=== PATIENT | male | born 1940 | race Caucasian/White ===

== ENCOUNTER 2021-09-15 10:12 | Inpatient (IN) ==
[2021-09-15 10:21] VITALS: BMI 31.1
--- NOTE | 2021-09-15 10:49 | DR.GENAD ---
HPI Time Seen Time Seen by Provider: 09/15/21 10:19 PCP Primary Care Physician: EDIL ONEIL Complaint/Symptoms Chief Complaint Doctors Comments: 80 y/o male presents to the ER with report of anemia, needing to receive blood transfusion. Has not been feeling well for awhile, + fatigue/weakness. No prior h/o anemia, no known reason to be anemic. BMs are dark ,but not black. Does take ASA on a daily basis. Pt's sister of [facility]. Pt with dyspnea on exertion, lightheadedness. BP has been running low. WAs on HTN meds, has stopped. Chief Complaint:: PRIMARY CARE DR SENT HIM TO RECEIVE BLOOD. PATIENT STATES HIS HCG WAS 6.8. Self Treatment fo Chief Complaint: N/A Nurses notes reviewed Nurses Notes Review: Yes Source History Provided: Patient Mode of Arrival Mode of Arrival: Ambulatory Timing Onset of Chief Complaint: 09/12/21 PMH PMH Past Medical History: Yes Past Medical History: Arthritis, COPD, Diabetes and Hypertension Past Surgical History: Yes Surgical History: Ortho Surgery Past Surgical History Comment: GALLBLADDER, LEFT KNEE Family History History of Family Medical Conditions: Yes Family Medical History: Diabetes Mellitus Social History Does patient currently use any type of tobacco product: No Have you used tobacco products in the last 12 months: No Type of Tobacco Use: None Does any household member use tobacco: No Do you use any recreational Drugs:: No Lives With: Other Lives Where: Home Infectious screening Have you traveled outside the country in the last 6 months?: No Isolation: Standard ROS Review of Systems Constitutional: Malaise and Weakness Eyes: No Symptoms Reported ENTM: No Symptoms Reported Respiratoy: Short of Breath (with exertion) Cardiovascular: No Symptoms Reported Gastrointestinal/Abdominal: No Symptoms Reported Genitourinary: No Symptoms Reported Neurological: No Symptoms Reported Musculoskeletal: No Symptoms Reported Integumentary: No Symptoms Reported Hematologic/Lymphatic: No Symptoms Reported Endocrine: No Symptoms Reported Psychiatric: No Symptoms Reported All Other Systems: Reviewed and Negative PE Vital Signs Vitals: Temperature 97.6 F Pulse Rate 88 Respiratory Rate 20 Blood Pressure 116/56 O2 Sat by Pulse Oximetry 90 General Limitations: No Limitations General Appearance: Alert and In No Apparent Distress Head Head Exam: Normal Inspection Eyes Eye exam: Normal Appearance and PERRL ENT ENT Exam: Normal Exam Neck Neck Exam: Normal Inspection and Full ROM Chest Chest Inspection: Normal Inspection Respiratory Respiratory Exam: Normal Lung Sounds Bilat; negative Accessory Muscle Use and Respiratory Distress Respiratory Exam: Bilateral: Clear to Auscultation Cardiovascular Cardiovascular Exam: Regular Rate, Normal Rhythm and Normal Heart Sounds Abdominal Exam Abdominal Exam: Normal Inspection, Normal Bowel Sounds and Soft; negative Tenderness Extremities Extremities Exam: Normal Inspection and Full ROM; negative Edema Back Back Exam: Normal Inspection Neurologic Neurological Exam: Alert, Oriented X3 and CN II-XII Intact; negative Motor Sensory Deficit Psychiatric Psychiatric Exam: Normal Affect Skin Skin Exam: Warm and Dry MDM Differential Diagnosis Differential Diagnosis: Anemia, GI bleeding, anemia of chronic disease COURSE Treatment Treatment: 80 y/o male sent for blood transfusion for anemia. Pt was 6.8 as outpatient recently, down to 6.4 here. Denies known focus of blood loss. Asked for stool sample to check for blood. Sister from [facility], not suspicious for same on pt's presentation. Ordered transfusion of 2 U PRBCs. Will recommend observation. Discussed with [facility] hospitalist, Dr Melara, accepts the admission. ROR Labs Reviewed Laboratory Results Reviewed?: Yes Result Diagrams: 09/15/21 11:07 09/15/21 11:07 Laboratory: WBC 9.3 X10^3/uL (3.6-10.0) 09/15/21 11:07 RBC 2.88 X10^6/uL (4.7-6.0) L 09/15/21 11:07 Hgb 6.4 g/dL (13.5-18.0) L* 09/15/21 11:07 Hct 20.4 % (42.0-54.0) L 09/15/21 11:07 MCV 70.6 fL (80.0-100.0) L 09/15/21 11:07 MCH 22.2 pg (27.0-34.0) L 09/15/21 11:07 MCHC 31.5 g/dL (33.0-35.0) L 09/15/21 11:07 RDW 17.0 % (11.6-16.5) H 09/15/21 11:07 Plt Count 503 X10^3/uL (150.0-450.0) H 09/15/21 11:07 Plt Count Comment Increased (ADEQUATE) 09/15/21 11:07 MPV 7.4 fL (7.4-11.0) 09/15/21 11:07 Neut % (Auto) 62.9 % (42.0-75.0) 09/15/21 11:07 Lymph % (Auto) 21.0 % (21.0-51.0) 09/15/21 11:07 [place]ent % (Auto) 13.6 % (0.0-13.0) H 09/15/21 11:07 Eos % (Auto) 1.4 % (0.9-2.9) 09/15/21 11:07 Baso % (Auto) 1.1 % (0.2-1.0) H 09/15/21 11:07 Neut # (Auto) 5.8 x10^3/uL (2.2-4.8) H 09/15/21 11:07 Lymph # (Auto) 2.0 X10^3/uL (1.3-2.9) 09/15/21 11:07 Sargent # (Auto) 1.3 x10^3/uL (0.3-0.8) H 09/15/21 11:07 Eos # (Auto) 0.1 x10^3/uL (0.0-0.2) 09/15/21 11:07 Baso # (Auto) 0.1 X10^3/uL (0.0-0.1) 09/15/21 11:07 Absolute Nucleated RBC 0.0 /100WBC 09/15/21 11:07 Plt Morphology Comment Normal (NORMAL) 09/15/21 11:07 RBC Morphology Abnormal (NORMAL) 09/15/21 11:07 Hypochromasia Slight A 09/15/21 11:07 Poikilocytosis Slight A 09/15/21 11:07 Anisocytosis Slight A 09/15/21 11:07 Microcytosis Slight A 09/15/21 11:07 PT 14.3 SECONDS (11.8-14.3) 09/15/21 11:07 INR Target Range - 09/15/21 11:07 INR 1.17 (0.8-1.3) 09/15/21 11:07 APTT 36.9 SECONDS (22.9-36.5) H 09/15/21 11:07 PTT Comment - 09/15/21 11:07 Sodium 133 mmol/L (136-145) L 09/15/21 11:07 Corrected Sodium 137 mmol/L (136-145) 09/15/21 11:07 Potassium 4.7 mmol/L (3.5-5.1) 09/15/21 11:07 Chloride 100 mmol/L (98-107) 09/15/21 11:07 Carbon Dioxide 23.0 mmol/L (21-32) 09/15/21 11:07 BUN 22 mg/dL (7-18) H 09/15/21 11:07 Creatinine 1.48 mg/dL (0.70-1.30) H 09/15/21 11:07 Est GFR (MDRD) Af Amer 59 (>60) 09/15/21 11:07 Est GFR (MDRD) Non-Af 49 (>60) L 09/15/21 11:07 Glucose 281 mg/dL (65-99) H 09/15/21 11:07 Calcium 7.5 mg/dL (8.5-10.1) L 09/15/21 11:07 Corrected Calcium 9.2 mg/dL (8.5-10.1) 09/15/21 11:07 Total Bilirubin 0.30 mg/dL (0.2-1.0) 09/15/21 11:07 AST 37 Units/L (15-37) 09/15/21 11:07 ALT 17 Units/L (12-78) 09/15/21 11:07 Alkaline Phosphatase 135 Units/L (46-116) H 09/15/21 11:07 Total Protein 6.9 g/dL (6.4-8.2) 09/15/21 11:07 Albumin 1.9 g/dL (3.4-5.0) L 09/15/21 11:07 Globulin 5.0 g/dL (2.5-4.5) H 09/15/21 11:07 Albumin/Globulin Ratio 0.4 Ratio (1.1-2.1) L 09/15/21 11:07 SARS-CoV-2 (PCR) Negative (NEGATIVE) 09/15/21 12:18 Influenza Type A (PCR) Negative (NEGATIVE) 09/15/21 12:18 Influenza Type B (PCR) Negative (NEGATIVE) 09/15/21 12:18 RSV (PCR) Negative (NEGATIVE) 09/15/21 12:18 Blood Type O POSITIVE 09/15/21 11:07 Antibody Screen Negative 09/15/21 11:07 Crossmatch See Detail 09/15/21 11:07 Other Results Comments: Hgb 6.4 Opioid Opioid Risk Tool Total: 0 Total Score Risk Category: Low Risk Copyright: Wade GALLO predicting aberrant behaviors Diagnosis Narrative Support Text: Symptomatic anemia
[2021-09-15 11:17] LABS: BASOPHILS # (AUTO) 0.1 X10^3/uL (0.0-0.1); HEMATOCRIT 20.4 % (42.0-54.0); MEAN CORPUSCULAR HGB CONC 31.5 g/dL (33.0-35.0); MEAN PLATELET VOLUME 7.4 fL (7.4-11.0); WHITE BLOOD COUNT 9.3 X10^3/uL (3.6-10.0)
[2021-09-15 11:21] LABS: BASOPHILS % (AUTO) 1.1 % (0.2-1.0); EOSINOPHILS # (AUTO) 0.1 x10^3/uL (0.0-0.2); EOSINOPHILS % (AUTO) 1.4 % (0.9-2.9); MEAN CORPUSCULAR HEMOGLOBIN 22.2 pg (27.0-34.0); MEAN CORPUSCULAR VOLUME 70.6 fL (80.0-100.0); MONOCYTES # (AUTO) 1.3 x10^3/uL (0.3-0.8); MONOCYTES % (AUTO) 13.6 % (0.0-13.0); NEUTROPHILS # (AUTO) 5.8 x10^3/uL (2.2-4.8); NEUTROPHILS % (AUTO) 62.9 % (42.0-75.0); PLATELET COUNT 503 X10^3/uL (150.0-450.0); RED BLOOD COUNT 2.88 X10^6/uL (4.7-6.0)
[2021-09-15 11:25] LABS: HEMOGLOBIN 6.4 g/dL (13.5-18.0)
[2021-09-15 11:33] LABS: ALBUMIN 1.9 g/dL (3.4-5.0); CALCIUM 7.5 mg/dL (8.5-10.1); COR CA(FOR HYPOALB) 9.2 mg/dL (8.5-10.1); CREATININE 1.48 mg/dL (0.70-1.30); TOTAL PROTEIN 6.9 g/dL (6.4-8.2)
[2021-09-15 11:49] LABS: PLATELET MORPHOLOGY COMMENT NORMAL (NORMAL)
[2021-09-15 11:50] LABS: ANISOCYTOSIS SLIGHT; HYPOCHROMASIA SLIGHT; MICROCYTOSIS SLIGHT; POIKILOCYTOSIS SLIGHT
[2021-09-15] MEDS ORDERED: NORCO 10/325 TAB PO PRN (15:19)
[2021-09-15] MEDS ORDERED: ATIVAN TAB 0.5 MG PO PRN (15:19)
[2021-09-15] MEDS ORDERED: HumuLIN R SUBCUT PRN (16:01)
[2021-09-15] MEDS ORDERED: NS 500 ML IV 500 ML IV ONE (16:42)
[2021-09-15] MEDS ORDERED: RESTORIL CAP 15 MG PO PRN (17:47)
[2021-09-15] MEDS ORDERED: SNACK - Diabetic Appropriate PO SCH ×2 (20:00)
[2021-09-15] MEDS: DITROPAN TAB 5 MG PO SCH (21:04)
[2021-09-15] MEDS: AMARYL TAB 4 MG PO SCH (21:04)
[2021-09-15] MEDS: FLOMAX PO SCH (21:04)
[2021-09-15] MEDS: GLUCOPHAGE PO SCH (21:05)
[2021-09-16 08:20] LABS: BASOPHILS # (AUTO) 0.2 X10^3/uL (0.0-0.1); BASOPHILS % (AUTO) 1.7 % (0.2-1.0); EOSINOPHILS # (AUTO) 0.2 x10^3/uL (0.0-0.2); EOSINOPHILS % (AUTO) 2.1 % (0.9-2.9); HEMATOCRIT 24.7 % (42.0-54.0); HEMOGLOBIN 8.2 g/dL (13.5-18.0); LYMPHOCYTES # (AUTO) 2.2 X10^3/uL (1.3-2.9); LYMPHOCYTES % (AUTO) 20.9 % (21.0-51.0); MEAN CORPUSCULAR HEMOGLOBIN 24.2 pg (27.0-34.0); MEAN CORPUSCULAR HGB CONC 33.3 g/dL (33.0-35.0); MEAN CORPUSCULAR VOLUME 72.6 fL (80.0-100.0); MEAN PLATELET VOLUME 7.4 fL (7.4-11.0); MONOCYTES # (AUTO) 1.4 x10^3/uL (0.3-0.8); MONOCYTES % (AUTO) 13.8 % (0.0-13.0); NEUTROPHILS # (AUTO) 6.4 x10^3/uL (2.2-4.8); NEUTROPHILS % (AUTO) 61.5 % (42.0-75.0); PLATELET COUNT 475 X10^3/uL (150.0-450.0); RED CELL DISTRIBUTION WIDTH 19.4 % (11.6-16.5); WHITE BLOOD COUNT 10.4 X10^3/uL (3.6-10.0)
[2021-09-16 08:28] LABS: ALANINE AMINOTRANSFERASE 16 Units/L (12-78); ALBUMIN 1.8 g/dL (3.4-5.0); ALKALINE PHOSPHATASE 131 Units/L (46-116); ASPARTATE AMINO TRANSFERASE 38 Units/L (15-37); BLOOD UREA NITROGEN 23 mg/dL (7-18); CALCIUM 7.5 mg/dL (8.5-10.1); CHLORIDE 102 mmol/L (98-107); COR CA(FOR HYPOALB) 9.3 mg/dL (8.5-10.1); COR NA(FOR HYPERGLY) 137 mmol/L (136-145); CREATININE 1.22 mg/dL (0.70-1.30); SODIUM 135 mmol/L (136-145); TOTAL PROTEIN 6.8 g/dL (6.4-8.2); eGFR NON BLACK RACES > 60 (>60)
[2021-09-16 08:38] LABS: ANISOCYTOSIS SLIGHT; PLATELET MORPHOLOGY COMMENT NORMAL (NORMAL)
[2021-09-16] MEDS: AMARYL TAB 4 MG PO SCH (09:15)
[2021-09-16] MEDS: DITROPAN TAB 5 MG PO SCH (09:15)
[2021-09-16] MEDS: GLUCOPHAGE PO SCH (09:16)
[2021-09-16] MEDS: FLOMAX PO SCH (09:16)
[2021-09-16 10:50] VITALS: BP 132/63
--- NOTE | 2021-09-23 15:50 | DR.H&P ---
H&P - History & Physical for Day of: H&P Date: 09/15/21 - Chief Complaint Chief Complaint: anemia - History of Present Illness History of Present Illness: Patient is a 80 year old male who is being admitted due to anemia. Patient reports he had outpatient labs at PCP office and was called and told to report to nearest ER due to anemia. Patient does report fatigue and mild SOB. Denies any other complaints. States he is not having a colonoscopy. States he has had one in the past. States he used to take iron supplement in the past but no longer does. States he has had this issue in the past and has this worked up outpatient. - Past Medical History Past Medical History: Anemia, Arthritis, COPD, Diabetes, Hypertension - Past Surgical History Surgical History: Cholecystectomy, Ortho Surgery - Family History Family Medical History: Diabetes Mellitus - Social History Does patient currently use any type of tobacco product: No Have you used tobacco products in the last 12 months: No Type of Tobacco Use: None Does any household member use tobacco: No Alcohol Use: None Drug Use: None - Medications Home Medications: No Known Drug Allergies Allergy (Verified 09/15/21 11:38) CONTINUE taking the following medications aspirin 325 mg PO DAILY 09/15/21 [History] carvedilol 12.5 mg PO BID 09/15/21 [History] glimepiride 4 mg PO BID 09/15/21 [History] hydrocodone-acetaminophen [[place]] 1 tab PO TID PRN 09/15/21 [History] lorazepam 0.5 mg PO DAILY PRN 09/15/21 [History] meloxicam 15 mg PO DAILY 09/15/21 [History] metformin 850 mg PO BID 09/15/21 [History] montelukast 10 mg PO HS 09/15/21 [History] nitrofurantoin monohyd/m-cryst 100 mg PO DAILY 09/15/21 [History] ondansetron HCl [Zofran] 8 mg PO TID PRN 09/15/21 [History] oxybutynin chloride 5 mg PO BID 09/15/21 [History] tamsulosin [Flomax] 0.4 mg PO BID 09/15/21 [History] - Review of Systems Constitutional: See HPI Eyes: See HPI ENT: See HPI Respiratory: See HPI Cardiovascular: See HPI Gastrointestinal: See HPI Genitourinary: See HPI Musculoskeletal: See HPI Skin: See HPI Neurological: See HPI - Physical Exam Vital Signs: Temperature 98.3 F Pulse Rate [Left] 93 Pulse Rate 88 Respiratory Rate 20 Blood Pressure [Left Arm] 132/63 Blood Pressure 107/53 O2 Sat by Pulse Oximetry 97 Oriented: Normal, Time, Person, Place Eyes: Normal Ear: Normal Nose: Normal Throat: Normal Respiratory: Clear Throughout Cardiovascular: Normal : Normal Auscultation: Bowel Sounds: Normal Palpation: Normal Tenderness: Normal Skin: Normal Musculoskeletal: Normal Psychiatric: Normal Mood Description: Calm Affect: Normal Speech Pattern: Clear, Appropriate - Assessment/Plan (1) Symptomatic anemia Status: Acute Plan: Transfusion PRBCs, repeat labs in am, iron panel, see further orders (2) Fatigue Status: Acute (3) Weakness Status: Acute - Allergies Allergies/Adverse Reactions: Allergies Allergy/AdvReac Type Severity Reaction Status Date / Time No Known Drug Allergies Allergy Verified 09/15/21 11:38
--- NOTE | 2021-09-23 15:52 | W.DIS.FURT ---
Discharge Plan - Discharge Plan Disposition: AGAINST MEDICAL ADVICE Condition: Stable
== END 2021-09-16 09:30 | disposition left against medical advice (07) | DRG 812 ==
LOC: ER 10:12 → MED/SURG 12:58
PROVIDERS: ADMIT Internal Medicine; ATTEND Internal Medicine
DX: R06.02 Shortness of breath; R79.1 Abnormal coagulation profile; Z53.29 Procedure and treatment not carried out because of patient's decision for other reasons; E11.65 Type 2 diabetes mellitus with hyperglycemia; I10 Essential (primary) hypertension; D64.89 Other specified anemias; J44.9 Chronic obstructive pulmonary disease, unspecified; R53.1 Weakness; Z20.822 Contact with and (suspected) exposure to COVID-19